=== PATIENT | male | born 1955 | race Asian ===

== ENCOUNTER 2017-11-07 00:18 | Emergency (ER) | payer BC ==
[~2017-11-07] VITALS: Ht 175.3 cm; Wt 90.0 kg
[~2017-11-07 00:18] MED LIST: ANTACID1 CAP; ASPIRIN 32325 MG/TAB PO; LOPRESSOR 225 MG/TAB PO; NITROQUICK0.4 MG SL; PLAVIX 75MG TAB75 MG PO; PRILOSEC 20MG20 MG PO; PRINIVIL2.5 MG PO; TOPROL XL 25MG25 MG PO; ZESTRIL2.5 MG PO; ZOCOR 40MG40 MG PO
[2017-11-07 00:45] VITALS: BP 169/94; PULSE 60
[2017-11-07 01:00] LABS: ALANINE AMINOTRANSFERASE 47 U/L (21-72); ALBUMIN 4.7 gm/dL (3.5-5.0); ALKALINE PHOSPHATASE 100 U/L (50-136); ANION GAP 13 mmol/L (7-16); AST,SGOT 31 U/L (15-37); BILIRUBIN,TOTAL 0.8 mg/dL (0.0-1.0); BLOOD UREA NITROGEN 18 mg/dL (9-20); CALCIUM 10.4 mg/dL (8.4-10.2); CARBON DIOXIDE 28 mmol/L (22-30); CHLORIDE 102 mmol/L (98-107); CREATININE, serum 0.92 mg/dL (0.66-1.25); GLUCOSE 196 mg/dL (74-106); POTASSIUM 3.8 mmol/L (3.4-5.0); SODIUM 143 mmol/L (137-145)
[2017-11-07 01:01] LABS: BASO % 0.5 % (0.0-2.0); EOS # 0.3 (0.0-0.7); GRAN # 2.1 (1.4-6.5); GRAN % 32.9 % (42.2-75.2); HEMATOCRIT 40.3 % (42.0-52.0); HEMOGLOBIN 14.1 g/dl (13.5-18.0); LYMPH # 3.3 (1.2-3.4); LYMPH % 51.9 % (20.0-51.0); MEAN CELL VOLUME 96 fl (80.0-100.0); MEAN CORPUSCULAR HEMOGLOBIN 33 pg (27.0-31.0); MEAN CORPUSCULAR HGB CONC 35 g/dl (33.0-37.0); MEAN PLATELET VOLUME 10.3 fl (7.4-10.4); MONO # 0.7 (0.1-0.6); MONO % 10.4 % (1.7-9.3); PLATELET COUNT 195 K/mm3 (130-400); RED BLOOD COUNT 4.22 M/mm3 (4.20-5.60); REDCELL DISTRIBUTION WIDTH-CV 11.8 % (11.5-14.5)
[2017-11-07 01:09] LABS: TROPONIN-I < 0.012 ng/mL (0.000-0.034)
== END 2017-11-07 01:45 | disposition home or self-care (01) ==
LOC: COL.ER 00:18
PROVIDERS: Nurse Practitioner Primary Care
DX: K21.9 Gastro-esophageal reflux disease without esophagitis (principal); I10 Essential (primary) hypertension; E78.5 Hyperlipidemia, unspecified; Z95.5 Presence of coronary angioplasty implant and graft; Z98.890 Other specified postprocedural states; Z79.82 Long term (current) use of aspirin

== ENCOUNTER 2019-11-13 13:32 | Emergency (ER) | payer MEDICARE ==
[~2019-11-13] VITALS: Ht 172.7 cm; Wt 89.5 kg
[2019-11-13 14:18] LABS: ALANINE AMINOTRANSFERASE 39 U/L (4-49); ALBUMIN 4.6 gm/dL (3.5-5.0); ALKALINE PHOSPHATASE 120 U/L (50-136); ANION GAP 9 mmol/L (7-16); AST,SGOT 29 U/L (15-37); BASO % 0.4 % (0.0-2.0); BILIRUBIN,TOTAL 1.1 mg/dL (0.0-1.0); BLOOD UREA NITROGEN 17 mg/dL (9-20); CALCIUM 9.6 mg/dL (8.4-10.2); CARBON DIOXIDE 28 mmol/L (22-30); CHLORIDE 101 mmol/L (98-107); CREATININE, serum 0.91 (0.66-1.25); EOS # 0.1 (0.0-0.7); GLUCOSE 229 mg/dL (74-106); GRAN # 3.7 (1.4-6.5); GRAN % 53.4 % (42.2-75.2); HEMOGLOBIN 14.9 g/dl (13.5-18.0); LYMPH # 2.5 (1.2-3.4); LYMPH % 35.9 % (20.0-51.0); MEAN CELL VOLUME 96 fl (80.0-100.0); MEAN CORPUSCULAR HEMOGLOBIN 33 pg (27.0-31.0); MEAN CORPUSCULAR HGB CONC 34 g/dl (33.0-37.0); MEAN PLATELET VOLUME 10.6 fl (7.4-10.4); MONO # 0.6 (0.1-0.6); PLATELET COUNT 185 K/mm3 (130-400); POTASSIUM 4.2 mmol/L (3.4-5.0); RED BLOOD COUNT 4.57 M/mm3 (4.20-5.60); REDCELL DISTRIBUTION WIDTH-CV 11.6 % (11.5-14.5); SODIUM 139 mmol/L (137-145); TOTAL PROTEIN 8.2 gm/dL (6.4-8.2)
[2019-11-13 14:29] LABS: TROPONIN-I < 0.012 ng/mL (0.000-0.035)
[2019-11-13] MEDS ORDERED: PRINIVIL2.5 MG PO (14:39)
[2019-11-13] MEDS ORDERED: LIPITOR 40MG TA40 MG PO (14:39)
[2019-11-13] MEDS ORDERED: LOPRESSOR 225 MG/TAB PO (14:39)
[2019-11-13] MEDS ORDERED: NEXIUM 20MG20 MG PO (14:56)
[2019-11-13 15:05] VITALS: BP 128/94; PULSE 65
== END 2019-11-13 15:08 | disposition home or self-care (01) ==
LOC: COL.ER 13:32
PROVIDERS: Physician Assistant
DX: R07.89 Other chest pain (principal); R10.13 Epigastric pain; I10 Essential (primary) hypertension; I25.10 Atherosclerotic heart disease of native coronary artery without angina pectoris; Z79.82 Long term (current) use of aspirin; Z95.5 Presence of coronary angioplasty implant and graft
CPT/HCPCS: J7030

== ENCOUNTER → 2020-02-26 | Outpatient (CLI) | payer MEDICARE ==
[~2020-02-26] MED LIST changes: +LIPITOR 40MG TA40 MG PO; +NEXIUM 20MG20 MG PO
== END ==
LOC: ZCOL.LAB 11:48
DX: Z20.828 Contact with and (suspected) exposure to other viral communicable diseases (principal)

== ENCOUNTER 2021-02-22 21:21 | Emergency (ER) | payer MEDICARE ==
[~2021-02-22] VITALS: Ht 172.7 cm; Wt 84.5 kg
[2021-02-22 22:01] LABS: ALANINE AMINOTRANSFERASE 25 U/L (4-49); ALBUMIN 4.2 gm/dL (3.5-5.0); ALKALINE PHOSPHATASE 86 U/L (50-136); ANION GAP 8 mmol/L (7-16); AST,SGOT 28 U/L (15-37); BILIRUBIN,TOTAL 0.7 mg/dL (0.0-1.0); BLOOD UREA NITROGEN 20 mg/dL (9-20); CALCIUM 9.8 mg/dL (8.4-10.2); CARBON DIOXIDE 26 mmol/L (22-30); CHLORIDE 102 mmol/L (98-107); CREATININE, serum 1.39 (0.66-1.25); GLUCOSE 197 mg/dL (74-106); LIPASE 125 U/L (23-300); POTASSIUM 3.9 mmol/L (3.4-5.0); SODIUM 136 mmol/L (137-145); TOTAL PROTEIN 7.7 gm/dL (6.4-8.2)
[2021-02-22 22:29] LABS: TROPONIN-I < 0.012 ng/mL (0.000-0.035)
[2021-02-22 22:36] LABS: CREATINE KINASE 96 U/L (55-170)
[2021-02-22 22:39] LABS: BASO % 0.3 % (0.0-2.0); EOS # 0.1 (0.0-0.7); EOS % 1.2 % (0-4.0); GRAN # 2.3 (1.4-6.5); GRAN % 39.3 % (42.2-75.2); HEMATOCRIT 37.3 % (42.0-52.0); HEMOGLOBIN 12.9 g/dl (13.5-18.0); LYMPH # 2.8 (1.2-3.4); LYMPH % 47.9 % (20.0-51.0); MEAN CELL VOLUME 97 fl (80.0-100.0); MEAN CORPUSCULAR HEMOGLOBIN 34 pg (27.0-31.0); MEAN CORPUSCULAR HGB CONC 35 g/dl (33.0-37.0); MEAN PLATELET VOLUME 9.6 fl (7.4-10.4); MONO # 0.6 (0.1-0.6); PLATELET COUNT 194 K/mm3 (130-400); RED BLOOD COUNT 3.84 M/mm3 (4.20-5.60); REDCELL DISTRIBUTION WIDTH-CV 11.2 % (11.5-14.5)
[2021-02-23] MEDS ORDERED: TOPROL XL 25MG25 MG PO (00:41)
[2021-02-23] MEDS ORDERED: PRINIVIL2.5 MG PO (00:41)
[2021-02-23] MEDS ORDERED: LIPITOR20 MG PO (00:41)
[2021-02-23 00:47] VITALS: BP 147/89; PULSE 72; TEMP 98.4
== END 2021-02-23 00:47 | disposition home or self-care (01) ==
LOC: EDBD 21:21 → COL.ER 21:21
PROVIDERS: Emergency Medicine
DX: R07.89 Other chest pain (principal); R10.13 Epigastric pain; I10 Essential (primary) hypertension; I25.10 Atherosclerotic heart disease of native coronary artery without angina pectoris; Z95.9 Presence of cardiac and vascular implant and graft, unspecified; Z79.899 Other long term (current) drug therapy; Z79.82 Long term (current) use of aspirin
CPT/HCPCS: J7030

== ENCOUNTER 2021-11-16 19:29 | Emergency (ER) | payer MEDICARE ==
[~2021-11-16] VITALS: Ht 170.2 cm; Wt 82.7 kg
[~2021-11-16 19:29] MED LIST changes: +LIPITOR20 MG PO
[2021-11-16 19:47] VITALS: TEMP 98.6
[2021-11-16 21:26] VITALS: BP 146/89; PULSE 86
== END 2021-11-16 21:26 | disposition home or self-care (01) ==
LOC: COL.ER 19:29
DX: H53.2 Diplopia (principal)